=== PATIENT | male | born 1995 | race Caucasian/White ===

== ENCOUNTER 2018-03-11 16:56 | Emergency (ER) | payer OTHER ==
[2018-03-11] MEDS ORDERED: Ketorolac Tromethamine 30 MG/ML VIAL ONE (17:11)
--- NOTE | 2018-03-11 18:42 | RAD ---
RIGHT ANKLE THREE VIEW: 03/11/18 HISTORY: Pain. COMPARISON: None. FINDINGS: No fracture. No malalignment. Small plantar calcaneal spur. Evidence of old injury of the lateral ligamentous complex with multiple ossicles. This may cause a ch ronic impingement type pain. IMPRESSION: Evidence of prior lateral ligamentous complex injury with multiple ossicles can be a cause of impinge ment. No acute displaced fracture or malalignment. POS: IVANNA
== END 2018-03-11 17:45 | disposition home or self-care (01) ==
LOC: SCSER 16:56
DX: S93.401A Sprain of unspecified ligament of right ankle, initial encounter (principal); X50.1XXA Overexertion from prolonged static or awkward postures, initial encounter
CPT/HCPCS: 96372; J1885

== ENCOUNTER 2023-03-24 07:04 | Emergency (ER) | payer OTHER | END 2023-03-24 07:38 | disposition home or self-care (01) | LOC: ERS 07:04 | DX: H60.502 Unspecified acute noninfective otitis externa, left ear (principal) | CPT/HCPCS: 99282 ==

== ENCOUNTER 2025-05-01 14:28 | Outpatient (CLI) | payer OTHER | END 2025-05-01 14:29 | disposition home or self-care (01) | LOC: SCSMRI 14:28 | PROVIDERS: ATTEND Family Medicine | DX: M54.12 Radiculopathy, cervical region (principal); M48.02 Spinal stenosis, cervical region; M48.03 Spinal stenosis, cervicothoracic region | CPT/HCPCS: 72141 ==